=== PATIENT | female | born 1975 | race Caucasian/White ===

== ENCOUNTER 2017-04-16 12:54 | Emergency (ER) | payer OTHER ==
[~2017-04-16] VITALS: Ht 160 cm; Wt 66.2 kg
[~2017-04-16 12:54] MED LIST: ORPH100T PO; ULTRACET PO
== END 2017-04-16 17:38 | disposition home or self-care (01) ==
LOC: ER 12:54
DX: M54.2 Cervicalgia (principal)

== ENCOUNTER → 2017-09-19 | Emergency (ER) | payer OTHER ==
[~2017-09-19] VITALS: Ht 157.5 cm; Wt 62.6 kg
== END | disposition left against medical advice (07) ==
LOC: ER 16:51
DX: Z53.20 Procedure and treatment not carried out because of patient's decision for unspecified reasons (principal)